=== PATIENT | male | born 1960 | race Caucasian/White ===

== ENCOUNTER 2017-06-22 04:44 | Emergency (ER) | payer MEDICAID ==
[~2017-06-22] VITALS: Ht 177.8 cm; Wt 90.0 kg
[2017-06-22] MEDS ORDERED: SODIUM CHLORIDE 0.9% 1,000 ML IV ONE (04:59)
[2017-06-22] MEDS ORDERED: FAMOTIDINE 20 MG/2 ML IVPush ONE (05:00)
[2017-06-22] MEDS ORDERED: THIAMINE 100 MG/ML, 2ML IV ONE (05:00)
[2017-06-22] MEDS ORDERED: SODIUM CHLORIDE 0.9% 1,000ML IVBOLUS ONE (05:00)
[2017-06-22] MEDS ORDERED: ONDANSETRON 2MG/ML, 2ML IVPush ONE (05:00)
[2017-06-22] MEDS ORDERED: FAMOTIDINE 20 MG/2 ML ONE (05:18)
[2017-06-22] MEDS ORDERED: ONDANSETRON 2MG/ML, 2ML ONE (05:18)
[2017-06-22] MEDS ORDERED: THIAMINE 100 MG/ML, 2ML ONE (05:19)
[2017-06-22 05:33] LABS: BLOOD UREA NITROGEN 14 mg/dL (7-18)
[2017-06-22 05:37] LABS: ASPARTATE AMINO TRANSFERASE 21 U/L (15-37)
[2017-06-22] MEDS ORDERED: LORazepam 2 MG/ML, 1ML IVPush PRN (06:00)
[2017-06-22] MEDS ORDERED: LORazepam 2 MG/ML, 1ML ONE (06:04)
[2017-06-22 06:57] VITALS: BP 135/85
== END 2017-06-22 07:31 | disposition home or self-care (01) ==
LOC: ED 05:19
DX: F10.239 Alcohol dependence with withdrawal, unspecified (principal); I10 Essential (primary) hypertension; E11.9 Type 2 diabetes mellitus without complications; I50.9 Heart failure, unspecified; Y90.9 Presence of alcohol in blood, level not specified
CPT/HCPCS: 36415; 74022; 80053; 81001; 83690; 85025; 86850; 86900; 93005; 96361; 96374; 96375; 99285; J2060; J2405; J3411; J7030; S0028

== ENCOUNTER 2017-08-01 22:37 | Emergency (ER) | payer MEDICAID ==
[~2017-08-01] VITALS: Ht 188 cm; Wt 88.6 kg
[2017-08-01 23:01] VITALS: BP 116/75
[2017-08-02] MEDS ORDERED: IBUPROFEN 200 MG TABLET PO ONE (00:30)
== END 2017-08-02 04:10 | disposition home or self-care (01) ==
LOC: ED 23:04
DX: J02.9 Acute pharyngitis, unspecified (principal); R06.00 Dyspnea, unspecified; E11.9 Type 2 diabetes mellitus without complications; I50.9 Heart failure, unspecified; I11.0 Hypertensive heart disease with heart failure
CPT/HCPCS: 71010; 93005; 99284

== ENCOUNTER 2017-12-26 02:20 | Emergency (ER) | payer MEDICAID ==
[~2017-12-26] VITALS: Ht 188 cm; Wt 83.0 kg
[2017-12-26] MEDS ORDERED: FAMOTIDINE 20 MG/2 ML IVPush ONE (03:00)
[2017-12-26] MEDS ORDERED: PANTOPRAZOLE 40 MG IV IVPush SCH (03:00)
[2017-12-26] MEDS ORDERED: SODIUM CHLORIDE 0.9% 1,000ML IVBOLUS ONE (03:00)
[2017-12-26] MEDS ORDERED: SODIUM CHLORIDE FLUSH 10ML SYR IVF ONE (03:00)
[2017-12-26] MEDS ORDERED: ONDANSETRON 2MG/ML, 2ML IVPush ONE (03:00)
[2017-12-26 03:11] LABS: BASOPHILS # (AUTO) 0.03 x10^3/uL (0-0.1); BASOPHILS % (AUTO) 0 % (0-1); EOSINOPHILS # (AUTO) 0.01 x10^3/uL (0-0.4); EOSINOPHILS % (AUTO) 0 % (1-7); LYMPHOCYTES # (AUTO) 2.61 x10^3/uL (1-3.4); LYMPHOCYTES % (AUTO) 25 % (22-44); MD NO; MEAN CORPUSCULAR HEMOGLOBIN 31.5 pg (27.5-34.5); MEAN CORPUSCULAR HGB CONC 33.1 g/dL (33.2-36.2); MEAN CORPUSCULAR VOLUME 95.1 fL (81-97); MEAN PLATELET VOLUME 7.3 fL (7.4-10.4); MONOCYTES # (AUTO) 0.36 x10^3/uL (0.2-0.8); MONOCYTES % (AUTO) 4 % (2-9); NEUTROPHILS # (AUTO) 7.39 x10^3/uL (1.8-6.8); NEUTROPHILS % (AUTO) 71 % (42-75); PLATELET COUNT 257 x10^3/uL (130-400); RED BLOOD COUNT 4.44 x10^6/uL (4.38-5.82); RED CELL DISTRIBUTION WIDTH 15.8 % (9.4-14.8)
[2017-12-26] MEDS ORDERED: FAMOTIDINE 20 MG/2 ML ONE (03:12)
[2017-12-26] MEDS ORDERED: ONDANSETRON 2MG/ML, 2ML ONE (03:12)
[2017-12-26 03:24] LABS: ALANINE AMINOTRANSFERASE 20 U/L (12-78); ALBUMIN 3.6 g/dL (3.4-5.0); ANION GAP 18 mmol/L (5-15); CALCIUM 7.6 mg/dL (8.5-10.1); CHLORIDE 96 mmol/L (98-107); CREATININE 0.62 mg/dL (0.7-1.3)
[2017-12-26 03:28] LABS: ALKALINE PHOSPHATASE 59 U/L (45-117); BILIRUBIN,TOTAL 1.3 mg/dL (0.2-1.0); TOTAL PROTEIN 6.7 g/dL (6.4-8.2); TROPONIN I < 0.015 ng/mL (0.000-0.045)
[2017-12-26 03:51] LABS: D-DIMER 1.28 ug/mlFEU (0.00-0.52); INTERNATIONAL NORMALIZED RATIO 0.97 (0.93-1.1)
[2017-12-26] MEDS ORDERED: OMNIPAQUE 350 MG/ML, 100ML BOTTLE ONE (04:52)
[2017-12-26 05:51] LABS: TROPONIN I < 0.015 ng/mL (0.000-0.045)
[2017-12-26 06:58] VITALS: BP 113/55
== END 2017-12-26 07:37 | disposition home or self-care (01) ==
LOC: ED 03:32
DX: R07.89 Other chest pain (principal); R11.10 Vomiting, unspecified; F10.221 Alcohol dependence with intoxication delirium; E11.9 Type 2 diabetes mellitus without complications; I11.0 Hypertensive heart disease with heart failure; I50.9 Heart failure, unspecified; I25.2 Old myocardial infarction
CPT/HCPCS: 36415; 71045; 71275; 80053; 80307; 83735; 83880; 84484; 85025; 85379; 85610; 85730; 93005; 96361; 96374; 96375; 99285; J2405; J7030; Q9967; S0028

== ENCOUNTER 2017-12-27 16:21 | Emergency (ER) | payer MEDICAID ==
[~2017-12-27] VITALS: Ht 182.9 cm; Wt 90.0 kg
[2017-12-27 16:36] VITALS: BP 120/70
[2017-12-27] MEDS ORDERED: ALBUTEROL/IPRATROPIUM 2.5MG/0.5MG, 3 ML ONE (16:52)
[2017-12-27] MEDS ORDERED: ALBUTEROL/IPRATROPIUM 2.5MG/0.5MG, 3 ML NPPB ONE (17:00)
== END 2017-12-27 22:16 | disposition home or self-care (01) ==
LOC: ED 17:02
DX: S00.83XA Contusion of other part of head, initial encounter (principal); F10.220 Alcohol dependence with intoxication, uncomplicated; E11.9 Type 2 diabetes mellitus without complications; I11.0 Hypertensive heart disease with heart failure; I50.9 Heart failure, unspecified; X58.XXXA Exposure to other specified factors, initial encounter; Y93.89 Activity, other specified; Y92.89 Other specified places as the place of occurrence of the external cause; Y99.8 Other external cause status
CPT/HCPCS: 70450; 71045; 94640; 99284; J7620